=== PATIENT | male | born 1995 | race African-American/Black ===

== ENCOUNTER 2021-05-05 15:58 | Emergency (ER) | payer SELFPAY ==
[~2021-05-05] VITALS: Ht 193 cm; Wt 91.4 kg
[2021-05-05 16:00] VITALS: BP 104/62
--- NOTE | 2021-05-05 16:35 | NUR ---
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
== END 2021-05-05 20:06 | disposition home or self-care (01) ==
LOC: ED 16:54
DX: S93.492A Sprain of other ligament of left ankle, initial encounter (principal); X50.1XXA Overexertion from prolonged static or awkward postures, initial encounter; Y93.89 Activity, other specified; Y92.328 Other athletic field as the place of occurrence of the external cause; Y99.8 Other external cause status
CPT/HCPCS: 99283